=== PATIENT | male | born 1960 | race Caucasian/White ===

== ENCOUNTER 2018-09-26 08:52 | Emergency (ER) | payer MEDICAID, OTHER ==
[~2018-09-26] VITALS: Ht 177.8 cm; Wt 79.0 kg
[2018-09-26 08:53] VITALS: Ht 177.8 cm; Wt 79.0 kg
--- NOTE | 2018-09-26 09:05 | ERD ---
ER Documentation Chief Complaint Chief Complaint right flank pain HPI The patient is a 58-year-old male, presenting to the ER because of right lower back pain, radiating to the right flank, right lower quadrant for the last 2 days, denies similar symptoms previously, complains of vomiting, denies hematemesis/hematochezia, dysuria, hematuria. He does not smoke nor drink Past medical/surgical history: None ROS All systems reviewed and are negative except as per history of present illness. Medications Home Meds Active Scripts Hydrocodone/Acetaminophen ([place] 5-325 Tablet) 1 Each Tablet, 1 TAB PO Q6H PRN for PAIN, #7 TAB Prov:MARK OLIVEIRA MD 09/26/18 Tamsulosin Hcl* (Flomax*) 0.4 Mg Cap.er.24h, 0.4 MG PO QPM, #10 CAP Prov:MARK OLIVEIRA MD 09/26/18 Cephalexin* (Keflex*) 500 Mg Capsule, 500 MG PO QID for 10 Days, CAP Prov:MARK OLIVEIRA MD 09/26/18 Allergies Allergies: Coded Allergies: No Known Allergy (Unverified , 09/26/18) Physical Exam Vitals Vital Signs Date Temp Pulse Resp B/P (MAP) Pulse Ox O2 O2 Flow FiO2 Time Delivery Rate 09/26/18 72 16 123/80 100 Room Air 12:02 (94) 09/26/18 98.2 59 16 148/85 100 Room Air 09:57 (106) 09/26/18 98.7 64 19 179/98 100 08:53 (125) Physical Exam Const: No acute distress. Head: Atraumatic. Eyes: Normal Conjunctiva. ENT: Normal External Ears, Nose and Mouth. Neck: Full range of motion. No meningismus. Resp: Clear to auscultation bilaterally. Cardio: Regular rate and rhythm. Abd: Soft, non distended, normal bowel sounds, moderate right flank tenderness, no right lower quadrant/right upper quadrant, epigastric tenderness Skin: No petechiae or rashes. Back: No midline or flank tenderness. Ext: No cyanosis, or edema. Neur: Awake and alert. No focal deficit Psych: Normal Mood and Affect. Result Diagram: 09/26/1840 09/26/18939 Results 24 hrs Laboratory Tests Test 09/26/18 09:40 09/26/18 12:11 White Blood Count 13.7 10^3/ul Red Blood Count 5.89 10^6/ul Hemoglobin 16.8 g/dl Hematocrit 50.6 % Mean Corpuscular Volume 85.9 fl Mean Corpuscular Hemoglobin 28.5 pg Mean Corpuscular Hemoglobin Concent 33.2 g/dl Red Cell Distribution Width 13.8 % Platelet Count 355 10^3/UL Mean Platelet Volume 9.7 fl Immature Granulocytes % 0.900 % Neutrophils % 84.0 % Lymphocytes % 7.7 % Monocytes % 6.6 % Eosinophils % 0.2 % Basophils % 0.6 % Nucleated Red Blood Cells % 0.0 /100WBC Immature Granulocytes # 0.120 10^3/ul Neutrophils # 11.5 10^3/ul Lymphocytes # 1.1 10^3/ul Monocytes # 0.9 10^3/ul Eosinophils # 0.0 10^3/ul Basophils # 0.1 10^3/ul Nucleated Red Blood Cells # 0.0 10^3/ul Sodium Level 142 mmol/L Potassium Level 3.3 mmol/L Chloride Level 104 mmol/L Carbon Dioxide Level 25 mmol/L Anion Gap 13 Blood Urea Nitrogen 17 mg/dl Creatinine 1.78 mg/dl Est Glomerular Filtrat Rate mL/min 39 mL/min Glucose Level 125 mg/dl Calcium Level 10.6 mg/dl Total Bilirubin 0.8 mg/dl Direct Bilirubin 0.00 mg/dl Indirect Bilirubin 0.8 mg/dl Aspartate Amino Transf (AST/SGOT) 33 IU/L Alanine Aminotransferase (ALT/SGPT) 20 IU/L Alkaline Phosphatase 72 IU/L Total Protein 7.7 g/dl Albumin 4.6 g/dl Globulin 3.10 g/dl Albumin/Globulin Ratio 1.48 Lipase 70 U/L Bedside Urine pH (LAB) 5.5 Bedside Urine Protein (LAB) 1+ Bedside Urine Glucose (UA) Negative Bedside Urine Ketones (LAB) 1+ Bedside Urine Blood 3+ Bedside Urine Nitrite (LAB) Negative Bedside Urine Leukocyte Esterase (L 1+ Current Medications Medications Dose Sig/René Start Time Status Last (Trade) Ordered Route PRN Stop Time Admin Dose Reason Admin 0.5 mg ONCE STAT 09/26/18 DC 09/26/18 Hydromorphone IV 09:33 09:50 HCl 09/26/18 09:35 (Dilaudid) Ondansetron 4 mg ONCE STAT 09/26/18 DC 09/26/18 HCl (Zofran IV 09:33 09:49 Inj) 09/26/18 09:35 Ceftriaxone 50 ml @ ONCE ONCE 09/26/18 DC 09/26/18 Sodium 100 mls/hr IVPB 13:30 13:42 09/26/18 13:59 Procedures/MDM [place] [id number] Radiology Main Line: [phone] DIAGNOSTIC IMAGING REPORT Patient: MEG HATFIELD : 1960 Age: 58 Sex: M MR #: [id number] DOS: 09/26/18932 Ordering MD: MARK OLIVEIRA MD Location: E/R Room/Bed: PROCEDURE: CT Abdomen and Pelvis without contrast. CLINICAL INDICATION: Right-sided pain TECHNIQUE: CT of the abdomen and pelvis without IV contrast. Coronal and sagittal reformatted images. DICOM images are available. One or more of the following dose reduction techniques were used: automated exposure control, adjustment of the mA and/or kV according to patient size, use of iterative reconstruction technique. CTDI 11.8 mGy, DLP 708 mGy-cm. COMPARISON: None. FINDINGS: Lower thorax: Benign calcified right middle lobe granuloma. Liver: Mild steatosis. Biliary: Normal gallbladder. No biliary dilatation. Pancreas: Normal Spleen: Normal Adrenal glands: Normal Genitourinary: Obstructive 2 mm calculus is present at the right UVJ, causing mild hydroureteronephrosis. Unremarkable left kidney and urinary bladder. Vascular: No abdominal aortic aneurysm. Aortoiliac atherosclerotic calcifications. Lymph nodes: No lymphadenopathy. Gastrointestinal: No bowel obstruction. Normal appendix. Sigmoid diverticulosis, without diverticulitis. No evidence of colitis. Peritoneum: No free air, free fluid or abscess. Small fat-containing right inguinal hernia, without incarceration. Reproductive organs: Grossly unremarkable. Musculoskeletal: Mild degenerative enthesopathy of the spine. IMPRESSION: 1. Obstructive 2 mm calculus is present at the right UVJ, causing mild hydroureteronephrosis. 2. Mild hepatic steatosis. 3. Sigmoid diverticulosis, without diverticulitis. RPTAT: QQ .Merlin Humphries MD, MD Date Time Electronically viewed and signed by .Merlin Humphries MD, on 09/26/2018 10:17 .R/ CC: MARK OLIVEIRA MD [id number] Mentation: I discussed the patient with the on-call urologist Dr. William at 1:05 PM, who was made aware of the lab, the treatment, the patient condition and he recommended to discharge the patient MEDICAL MAKING DECISION: The patient is a 58-year-old male, presenting with acute right ureterolithiasis, acute cystitis, acute hypokalemia, acute renal ins ufficiency. He was treated with Dilaudid 0.5 mg IV for pain and Zofran 4 mg IV for nausea and Rocephin IV for acute cystitis with good response. He is currently without any pain and is stable for outpatient follow-up The differential diagnoses considered include but are not limited to cholelithia sis, cholecystitis, choledocholithiasis, cholangitis, pancreatitis, hepatitis, gastritis, peptic ulcer disease, gastric ulcer, appendicitis, cystitis, diverticulitis, partial small bowel obstruction. Departure Diagnosis: Primary Impression: Ureterolithiasis Additional Impressions: Hypokalemia UTI (urinary tract infection) Renal insufficiency Condition: Good Comments The patient's blood pressure was elevated (>120/80) but appears stable without evidence of hypertension emergency or urgency. The patient was counseled about the risks of hypertension and urged to pursue outpatient monitoring and therapy within a week with their primary care physician. He was discharged with Keflex, Flomax, [place] and a urine strainer I discussed the findings with the patient. I advised the patient to follow-up with the oncall urologist dr mondragon in about 2-3 days, sooner if needed and return if any concern. Disclaimer: Inadvertent spelling and grammatical errors are likely due to EHR/dictation software use and do not reflect on the overall quality of patient care. Also, please note that the electronic time recorded on this note does not necessarily reflect the actual time of the patient encounter. MARK OLIVEIRA MD Sep 26, 2018 09:04
[2018-09-26] MEDS ORDERED: ONDANSETRON 4 MG INJ IV STA (09:33)
[2018-09-26] MEDS ORDERED: HYDROmorphONE 0.5 MG/0.5 ML SYG IV STA (09:33)
[2018-09-26] MEDS ORDERED: TAMS-14 PO (13:25)
[2018-09-26] MEDS ORDERED: CEPH-443 PO (13:25)
[2018-09-26] MEDS ORDERED: HYDR-4011 PO (13:26)
[2018-09-26] MEDS ORDERED: CEFTRIAXONE 1 GM/50 ML (PMX) 50 ML IVPB ONE (13:30)
[2018-09-26 14:20] VITALS: BP 126/78; PULSE 53; RESP 14
== END 2018-09-26 14:20 | disposition home or self-care (01) ==
LOC: E/R 08:52
DX: N20.1 Calculus of ureter (principal); E87.6 Hypokalemia; N39.0 Urinary tract infection, site not specified; N28.9 Disorder of kidney and ureter, unspecified
CPT/HCPCS: 36415; 74176; 80053; 81003; 83690; 85025; 96374; 96375; J0696; J1170; J2405; Z7502